=== PATIENT | female | born 1995 | race African-American/Black ===

== ENCOUNTER 2022-12-04 04:46 | Emergency (ER) | payer SELFPAY ==
[2022-12-04 04:56] VITALS: TEMP 97.3; BMI 19.9
[2022-12-04] MEDS ORDERED: ONDANSETRON 4 MG/2 ML VIAL IVPUSH ONE (04:57)
[2022-12-04] MEDS ORDERED: ONDANSETRON 4 MG/2 ML VIAL ONE (04:59)
[2022-12-04] MEDS ORDERED: FAMOTIDINE 20 MG/50 ML IVPB 20 MG/50 ML MG IVPB ONE ×2 (05:06→05:14)
[2022-12-04] MEDS ORDERED: ACETAMINOPHEN 1000 MG/100 ML BAG IVPB ONE (05:06)
[2022-12-04] MEDS ORDERED: LACTATED RINGERS SOLUTION 1000 ML INFUS.BAG IV ONE ×2 (05:06)
[2022-12-04] MEDS ORDERED: ACETAMINOPHEN INJECTION 100 ML IVPB ONE (05:14)
[2022-12-04 05:27] LABS: BASO % 0.3 % (0-2.0); HEMATOCRIT 39.8 % (32.4-45.2); HEMOGLOBIN 14.2 GM/dL (10.7-15.3); LYMPH % 6.7 % (8-40); MCH 31.2 pg (25.7-33.7); MCHC 35.6 g/dl (32.0-36.0); MEAN CELL VOLUME 87.5 fl (80-96); MEAN PLT VOLUME 7.4 fl (7.5-11.1); PLATELET COUNT 422 10^3/uL (134-434); RBC 4.55 M/mm3 (3.60-5.2); WHITE BLOOD COUNT 10.7 K/mm3 (4.0-10.0)
[2022-12-04 05:44] LABS: POTASSIUM 4.3 mmol/L (3.5-5.1)
[2022-12-04 05:47] LABS: ALBUMIN 4.6 g/dl (3.4-5.0); BLOOD UREA NITROGEN 15.2 mg/dL (7-18); CALCIUM 10.5 mg/dL (8.5-10.1)
[2022-12-04 05:50] LABS: CREATININE 0.9 mg/dL (0.55-1.3); PHOSPHOROUS 1.5 mg/dL (2.5-4.9)
[2022-12-04 05:51] LABS: BILIRUBIN,TOTAL 0.5 mg/dL (0.2-1)
[2022-12-04] MEDS ORDERED: NAPH,MB-DB/K PH,MBDB POWDER PACKET PO ONE ×2 (06:24→09:02)
[2022-12-04 06:33] LABS: MAGNESIUM 2.3 mg/dL (1.8-2.4)
[2022-12-04] MEDS ORDERED: HALOPERIDOL LACTATE 5 MG/ML IM ONE ×2 (06:46→06:47)
[2022-12-04 08:00] VITALS: RESP 16
[2022-12-04] MEDS ORDERED: NAPH,MB-DB/K PH,MBDB POWDER PACKET ONE (08:14)
[2022-12-04 09:03] VITALS: BP 111/55; PULSE 82
== END 2022-12-04 09:44 | disposition home or self-care (01) ==
LOC: JER 04:46
PROC: 3E033GC Introduction of Other Therapeutic Substance into Peripheral Vein, Percutaneous Approach (ICD-10-PCS; principal; 2022-12-04)
PROC: 3E033GC Introduction of Other Therapeutic Substance into Peripheral Vein, Percutaneous Approach (ICD-10-PCS; 2022-12-04)
PROC: 3E033GC Introduction of Other Therapeutic Substance into Peripheral Vein, Percutaneous Approach (ICD-10-PCS; 2022-12-04)
PROC: 3E023GC Introduction of Other Therapeutic Substance into Muscle, Percutaneous Approach (ICD-10-PCS; 2022-12-04)
DX: R11.2 Nausea with vomiting, unspecified (principal); R10.9 Unspecified abdominal pain; Z20.822 Contact with and (suspected) exposure to COVID-19
CPT/HCPCS: 0241U-QW; 36415; 71046-TC-FY; 80053; 83690; 83735; 84100; 84703; 85025; 93005; 93010; 99285-25

== ENCOUNTER 2023-02-10 06:14 | Inpatient (IN) | payer SELFPAY ==
[2023-02-10] MEDS ORDERED: SODIUM CHLORIDE 1,000 ML IV STA (06:21)
[2023-02-10] MEDS ORDERED: ONDANSETRON 4 MG/2 ML VIAL IVPUSH ONE (06:21)
[2023-02-10] MEDS ORDERED: ONDANSETRON 4 MG/2 ML VIAL ONE (06:25)
[2023-02-10 06:53] LABS: BASO % 0.5 % (0-2.0); HEMATOCRIT 38.5 % (32.4-45.2); HEMOGLOBIN 12.4 GM/dL (10.7-15.3); LYMPH % 8.8 % (8-40); MCH 29.1 pg (25.7-33.7); MCHC 32.3 g/dl (32.0-36.0); MEAN CELL VOLUME 90.1 fl (80-96); MEAN PLT VOLUME 7.2 fl (7.5-11.1); NEUT % 87.7 % (42.8-82.8); PLATELET COUNT 404 10^3/uL (134-434); RBC 4.27 M/mm3 (3.60-5.2); RDW 13.9 % (11.6-15.6)
[2023-02-10 06:59] LABS: POTASSIUM 3.7 mmol/L (3.5-5.1)
[2023-02-10 07:01] LABS: CALCIUM 9.8 mg/dL (8.5-10.1)
[2023-02-10 07:02] LABS: ALBUMIN 4.4 g/dl (3.4-5.0); BLOOD UREA NITROGEN 7.8 mg/dL (7-18)
[2023-02-10 07:05] LABS: CREATININE 0.8 mg/dL (0.55-1.3)
[2023-02-10 07:07] LABS: BILIRUBIN,TOTAL 0.4 mg/dL (0.2-1); TOT PROT 8.1 g/dl (6.4-8.2)
[2023-02-10] MEDS ORDERED: LACTATED RINGERS SOLUTION 1,000 ML/1,000 ML INFUS.BAG IV STA ×2 (07:25→12:03)
[2023-02-10] MEDS ORDERED: FAMOTIDINE 20 MG/50 ML IVPB 20 MG/50 ML MG IVPB ONE ×2 (07:26→07:29)
[2023-02-10] MEDS ORDERED: METOCLOPRAMIDE HCL INJECTION 10 MG/2 ML VIAL IVPUSH ONE (07:26)
[2023-02-10] MEDS ORDERED: METOCLOPRAMIDE HCL INJECTION 10 MG/2 ML VIAL ONE (07:29)
[2023-02-10] MEDS ORDERED: ACETAMINOPHEN 1000 MG/100 ML BAG IVPB ONE (08:00)
[2023-02-10] MEDS ORDERED: ACETAMINOPHEN INJECTION 100 ML IVPB ONE (08:11)
[2023-02-10 08:22] LABS: EPI CELLS 11 /uL (0-25.1); HYALINE CASTS 0 /uL (0-3.1); URINE APPEARANCE CLEAR; URINE BACTERIA 109 /uL (0-1359); URINE BILIRUBIN NEGATIVE (NEGATIVE); URINE COLOR YELLOW; URINE GLUCOSE (UA) TRACE (NEGATIVE); URINE KETONE 1+ (NEGATIVE); URINE LEUK ESTERASE NEGATIVE (NEGATIVE); URINE NITRITE NEGATIVE (NEGATIVE); URINE PROTEIN NEGATIVE (NEGATIVE); URINE RBC 506 /uL (0-23.9); URINE UROBILINOGEN 0.2 mg/dL (0.2-1.0); URINE WBC 24 /uL (0-25.8)
[2023-02-10] MEDS ORDERED: PROCHLORPERAZINE INJECTION 10 MG/2 ML VIAL IVPB ONE (08:36)
[2023-02-10] MEDS ORDERED: PROCHLORPERAZINE INJECTION 10 MG/2 ML VIAL ONE (08:38)
[2023-02-10] MEDS ORDERED: HALOPERIDOL LACTATE 5 MG/ML IM ONE ×2 (12:02→12:08)
[2023-02-10] MEDS ORDERED: ACETAMINOPHEN 1000 MG/100 ML BAG IVPB PRN (13:28)
[2023-02-10 14:26] LABS: PHOSPHOROUS 2.4 mg/dL (2.5-4.9)
[2023-02-10 16:22] LABS: COCAINE, UR NEGATIVE (NEGATIVE); OPIATES, URI NEGATIVE (NEGATIVE)
[2023-02-10 16:23] LABS: PHENCYCLIDINE,URINE NEGATIVE (NEGATIVE); URINE AMPHETAMINES NEGATIVE (NEGATIVE); URINE BARBITURATES NEGATIVE (NEGATIVE); URINE BENZODIAZEPINES NEGATIVE (NEGATIVE)
[2023-02-10 16:45] LABS: METHADONE, UR NEGATIVE (NEGATIVE)
[2023-02-10 19:01] VITALS: BMI 18.6
[2023-02-11] MEDS: LACTATED RINGERS SOLUTION 1,000 ML IV SCH ×3 (02:38→13:30)
[2023-02-11] MEDS: ONDANSETRON 4 MG/2 ML VIAL IVPUSH PRN ×3 (02:38→22:16)
[2023-02-11 10:02] LABS: POTASSIUM 3.3 mmol/L (3.5-5.1)
[2023-02-11 10:17] LABS: ALBUMIN 3.7 g/dl (3.4-5.0); BLOOD UREA NITROGEN 3.6 mg/dL (7-18); CALCIUM 8.9 mg/dL (8.5-10.1); MAGNESIUM 2.1 mg/dL (1.8-2.4)
[2023-02-11 10:18] LABS: BILIRUBIN,TOTAL 0.3 mg/dL (0.2-1)
[2023-02-11 10:19] LABS: TOT PROT 6.8 g/dl (6.4-8.2)
[2023-02-11 10:21] LABS: CREATININE 0.5 mg/dL (0.55-1.3); PHOSPHOROUS 2.4 mg/dL (2.5-4.9)
[2023-02-11] MEDS ORDERED: POTASSIUM CHLORIDE TABS 20 MEQ TABLET.ER (FP) PO ONE (10:58)
[2023-02-11 11:02] LABS: HEMATOCRIT 35.9 % (32.4-45.2); HEMOGLOBIN 11.6 GM/dL (10.7-15.3); MCH 28.9 pg (25.7-33.7); MCHC 32.2 g/dl (32.0-36.0); MEAN CELL VOLUME 89.5 fl (80-96); MEAN PLT VOLUME 7.3 fl (7.5-11.1); PLATELET COUNT 373 10^3/uL (134-434); RBC 4.01 M/mm3 (3.60-5.2); RDW 13.9 % (11.6-15.6); WHITE BLOOD COUNT 7.8 K/mm3 (4.0-10.0)
[2023-02-11] MEDS: busPIRone HCL 10 MG TABLET (FP) PO SCH ×2 (11:49→22:16)
[2023-02-11] MEDS: ACETAMINOPHEN 1000 MG/100 ML BAG IVPB PRN (22:16)
[2023-02-12] MEDS ORDERED: INSULIN (NOVOLOG) ASPART 100 UNITS/ML 10ML VIAL ONE (06:46)
[2023-02-12] MEDS: busPIRone HCL 10 MG TABLET (FP) PO SCH (09:29)
[2023-02-12] MEDS: LACTATED RINGERS SOLUTION 1,000 ML IV SCH (13:13)
[2023-02-12] MEDS ORDERED: TRIMETHOBENZAMIDE HCL 200MG/2ML INJ IM PRN (14:18)
[2023-02-12] MEDS: ACETAMINOPHEN 1000 MG/100 ML BAG IVPB PRN (16:47)
[2023-02-13] MEDS: busPIRone HCL 10 MG TABLET (FP) PO SCH ×4 (01:20→23:52)
[2023-02-13] MEDS: PANTOPRAZOLE 40 MG TABLET PO SCH (09:29)
[2023-02-13 10:00] LABS: BASO % 0.5 % (0-2.0); EOS % 0.9 % (0-4.5); HEMATOCRIT 35.8 % (32.4-45.2); HEMOGLOBIN 11.9 GM/dL (10.7-15.3); MCH 29.4 pg (25.7-33.7); MCHC 33.2 g/dl (32.0-36.0); MEAN CELL VOLUME 88.5 fl (80-96); MEAN PLT VOLUME 7.2 fl (7.5-11.1); MONO % 10.2 % (3.8-10.2); NEUT % 61.4 % (42.8-82.8); PLATELET COUNT 406 10^3/uL (134-434); RBC 4.04 M/mm3 (3.60-5.2); RDW 13.6 % (11.6-15.6); WHITE BLOOD COUNT 9.4 K/mm3 (4.0-10.0)
[2023-02-13 10:19] LABS: CALCIUM 9.1 mg/dL (8.5-10.1)
[2023-02-13 10:20] LABS: ALBUMIN 3.9 g/dl (3.4-5.0); BLOOD UREA NITROGEN 5.7 mg/dL (7-18)
[2023-02-13 10:23] LABS: CREATININE 0.6 mg/dL (0.55-1.3)
[2023-02-13 10:24] LABS: BILIRUBIN,TOTAL 0.9 mg/dL (0.2-1); TOT PROT 7.1 g/dl (6.4-8.2)
[2023-02-13] MEDS ORDERED: POTASSIUM CHLORIDE TABS 20 MEQ TABLET.ER (FP) PO SCH (13:15)
[2023-02-13] MEDS ORDERED: MELATONIN 5 MG TABLETS PO PRN (13:17)
[2023-02-13] MEDS: PROCHLORPERAZINE INJECTION 10 MG/2 ML VIAL IVPB PRN ×2 (15:10→20:04)
[2023-02-13] MEDS ORDERED: ACETAMINOPHEN 1000 MG/100 ML BAG IVPB PRN (15:11)
[2023-02-13] MEDS ORDERED: FAMOTIDINE 20 MG/50 ML IVPB 20 MG/50 ML MG IVPB ONE (15:46)
[2023-02-13] MEDS ORDERED: MAG HYDROX/AL HYDROX/SIMETH 30 ML UNIT-DOSE CUP PO ONE (21:38)
[2023-02-13] MEDS: POTASSIUM CHLORIDE TABS 20 MEQ TABLET.ER (FP) PO SCH (23:52)
[2023-02-14] MEDS: busPIRone HCL 10 MG TABLET (FP) PO SCH (09:55)
[2023-02-14] MEDS: PANTOPRAZOLE 40 MG TABLET PO SCH (09:55)
[2023-02-14] MEDS: ENOXAPARIN NA (PORCINE) 40 MG/0.4 ML DISP.SYRIN SQ SCH (09:55)
[2023-02-14 09:57] LABS: POTASSIUM 3.2 mmol/L (3.5-5.1)
[2023-02-14 09:59] LABS: CALCIUM 9.1 mg/dL (8.5-10.1)
[2023-02-14 10:00] LABS: BLOOD UREA NITROGEN 8.4 mg/dL (7-18)
[2023-02-14 10:03] LABS: CREATININE 0.6 mg/dL (0.55-1.3)
[2023-02-14] MEDS: POTASSIUM CHLORIDE TABS 20 MEQ TABLET.ER (FP) PO SCH (10:07)
[2023-02-14] MEDS ORDERED: FAMOTIDINE 20 MG/50 ML IVPB 20 MG/50 ML MG IVPB ONE (12:27)
[2023-02-14] MEDS: AMINO ACIDS 4.25%/D5W 1,000 ML IV SCH (14:35)
[2023-02-15] MEDS: busPIRone HCL 10 MG TABLET (FP) PO SCH ×2 (00:25→10:05)
[2023-02-15] MEDS: SUCRALFATE 1 GM TABLET (FP) PO SCH ×2 (00:26→10:04)
[2023-02-15] MEDS: POTASSIUM CHLORIDE TABS 20 MEQ TABLET.ER (FP) PO SCH ×2 (00:26→10:04)
[2023-02-15 02:59] VITALS: RESP 20
[2023-02-15] MEDS: ACETAMINOPHEN 1000 MG/100 ML BAG IVPB PRN ×2 (04:18→10:19)
[2023-02-15] MEDS ORDERED: PANTOPRAZOLE SODIUM 40 MG VIAL IVPUSH SCH (10:00)
[2023-02-15] MEDS: ENOXAPARIN NA (PORCINE) 40 MG/0.4 ML DISP.SYRIN SQ SCH (10:13)
[2023-02-15 10:40] LABS: POTASSIUM 3.9 mmol/L (3.5-5.1)
[2023-02-15 10:42] LABS: BLOOD UREA NITROGEN 9.1 mg/dL (7-18); CALCIUM 9.1 mg/dL (8.5-10.1); MAGNESIUM 2.6 mg/dL (1.8-2.4)
[2023-02-15 10:46] LABS: CREATININE 0.6 mg/dL (0.55-1.3)
[2023-02-15] MEDS: AMINO ACIDS 4.25%/D5W 1,000 ML IV SCH (13:58)
[2023-02-15 14:32] VITALS: BP 98/55; PULSE 74; TEMP 98.3
== END 2023-02-15 14:55 | disposition home or self-care (01) | DRG 241 ==
LOC: JER 06:14 → JERBED 14:02 → J6S 18:30 → OBSVTOIN 02-12 13:37
PROVIDERS: ADMIT Internal Medicine; ATTEND Internal Medicine
PROC: 0DB68ZX Excision of Stomach, Via Natural or Artificial Opening Endoscopic, Diagnostic (ICD-10-PCS; 2023-02-12)
PROC: 0DB58ZX Excision of Esophagus, Via Natural or Artificial Opening Endoscopic, Diagnostic (ICD-10-PCS; 2023-02-12)
PROC: 0DB98ZX Excision of Duodenum, Via Natural or Artificial Opening Endoscopic, Diagnostic (ICD-10-PCS; principal; 2023-02-12 09:00)
DX: K29.60 Other gastritis without bleeding (principal); R11.2 Nausea with vomiting, unspecified; E86.0 Dehydration; K21.9 Gastro-esophageal reflux disease without esophagitis; E87.6 Hypokalemia; F39 Unspecified mood [affective] disorder; R11.15 Cyclical vomiting syndrome unrelated to migraine; F12.10 Cannabis abuse, uncomplicated; K20.80 Other esophagitis without bleeding; F41.8 Other specified anxiety disorders
CPT/HCPCS: 36415; 71045-TC-FY; 74177-TC; 76830-TC; 80048; 80053; 80307; 81003; 83690; 83735; 84100; 84703; 85025; 85027; 88305-TC; 88342-TC; 93005; 93010; 99285-25; G0378; Q9967

== ENCOUNTER 2023-06-14 15:39 | Emergency (ER) | payer SELFPAY ==
[2023-06-14 15:49] VITALS: BMI 18.4
[2023-06-14] MEDS ORDERED: SODIUM CHLORIDE 0.9% 500 ML INFUS.BAG IV ONE (16:07)
[2023-06-14] MEDS ORDERED: ONDANSETRON 4 MG/2 ML VIAL IVPUSH ONE (16:28)
[2023-06-14] MEDS ORDERED: FAMOTIDINE 20 MG/50 ML IVPB 20 MG/50 ML MG IVPB ONE ×2 (16:30→16:52)
[2023-06-14] MEDS ORDERED: morphine CARPU-JECT 4 MG/1 ML DISP.SYRIN IVPUSH ONE (16:30)
[2023-06-14] MEDS ORDERED: ONDANSETRON 4 MG/2 ML VIAL ONE (16:52)
[2023-06-14 17:11] LABS: HEMATOCRIT 41.4 % (32.4-45.2); HEMOGLOBIN 13.7 GM/dL (10.7-15.3); MCH 29.3 pg (25.7-33.7); MCHC 33.1 g/dl (32.0-36.0); MEAN CELL VOLUME 88.6 fl (80-96); MEAN PLT VOLUME 7.1 fl (7.5-11.1); PLATELET COUNT 423 10^3/uL (134-434); RBC 4.67 M/mm3 (3.60-5.2); RDW 14.1 % (11.6-15.6); WHITE BLOOD COUNT 8.8 K/mm3 (4.0-10.0)
[2023-06-14] MEDS ORDERED: morphine SULFATE 4 MG/ML VIAL ONE (17:11)
[2023-06-14] MEDS ORDERED: METOCLOPRAMIDE HCL INJECTION 10 MG/2 ML VIAL IVPB ONE (17:17)
[2023-06-14] MEDS ORDERED: METOCLOPRAMIDE HCL INJECTION 10 MG/2 ML VIAL ONE (17:24)
[2023-06-14 17:38] LABS: POTASSIUM 3.6 mmol/L (3.5-5.1)
[2023-06-14 17:40] LABS: CALCIUM 9.8 mg/dL (8.5-10.1)
[2023-06-14 17:41] LABS: ALBUMIN 4.9 g/dl (3.4-5.0)
[2023-06-14 17:44] LABS: CREATININE 0.9 mg/dL (0.55-1.3)
[2023-06-14 17:45] LABS: BILIRUBIN,TOTAL 0.4 mg/dL (0.2-1)
[2023-06-14 18:49] VITALS: BP 95/58; PULSE 63; RESP 16; TEMP 98.4
[2023-06-14 19:54] LABS: ANISOCYTOSIS 0; HELMET CELLS 0; HOWELL-JOLLY BODIES 0; MACROCYTOSIS 0; OVALOCYTE 0; PLATELET ESTIMATE INCREASED; ROULEAU 0; SICKELED CELLS 0; TARGET CELLS 0; TEAR DROP CELLS 0; TOXIC GRANULATION 0
== END 2023-06-14 18:50 | disposition home or self-care (01) ==
LOC: JER 15:39
PROC: 3E033GC Introduction of Other Therapeutic Substance into Peripheral Vein, Percutaneous Approach (ICD-10-PCS; principal; 2023-06-14)
PROC: 3E033GC Introduction of Other Therapeutic Substance into Peripheral Vein, Percutaneous Approach (ICD-10-PCS; 2023-06-14)
PROC: 3E033GC Introduction of Other Therapeutic Substance into Peripheral Vein, Percutaneous Approach (ICD-10-PCS; 2023-06-14)
PROC: 3E033GC Introduction of Other Therapeutic Substance into Peripheral Vein, Percutaneous Approach (ICD-10-PCS; 2023-06-14)
DX: R11.2 Nausea with vomiting, unspecified (principal); R19.7 Diarrhea, unspecified; R10.84 Generalized abdominal pain; R10.13 Epigastric pain; R10.11 Right upper quadrant pain; R10.12 Left upper quadrant pain
CPT/HCPCS: 36415; 80053; 83690; 84703; 85025; 93005; 93010; 99284-25

== ENCOUNTER 2023-08-13 03:29 | Emergency (ER) | payer SELFPAY ==
[2023-08-13 03:38] VITALS: BP 115/76; PULSE 72; RESP 18; TEMP 97.6; BMI 16.9
== END 2023-08-13 06:27 | disposition home or self-care (01) ==
LOC: JER 03:29
PROC: 0HQGXZZ Repair Left Hand Skin, External Approach (ICD-10-PCS; principal; 2023-08-13)
DX: S61.215A Laceration without foreign body of left ring finger without damage to nail, initial encounter (principal); X99.1XXA Assault by knife, initial encounter; Y92.008 Other place in unspecified non-institutional (private) residence as the place of occurrence of the external cause
CPT/HCPCS: 99282-25